=== PATIENT | female | born 1980 ===

== ENCOUNTER 2017-06-17 15:12 | Inpatient (IN) | payer MEDICAID, OTHER ==
[2017-06-17 15:12] VITALS: BMI 24.5
[2017-06-17 17:01] LABS: BASO # 0.1 K/uL (0.0-0.2); BASO % 1.5 % (0.0-2.0); EOS # 0.1 K/uL (0.0-0.7); EOS % 1.6 % (0.0-4.0); HEMATOCRIT 26.5 % (34.0-47.0); LYMPH # 1.9 K/uL (1.0-4.3); LYMPH % 29.2 % (20.0-40.0); MEAN CELL VOLUME 60.8 fL (81.0-99.0); MEAN CORPUSCULAR HEMOGLOBIN 17.6 pg (27.0-31.0); MEAN PLATELET VOLUME 8.9 fL (7.2-11.7); MONO # 0.5 K/uL (0.0-0.8); MONO % 6.9 % (0.0-10.0); RED CELL DISTRIBUTION WIDTH 18.7 % (11.5-14.5); WHITE BLOOD COUNT 6.5 K/uL (4.8-10.8)
[2017-06-17 17:06] LABS: CHLORIDE 106 mmol/L (98-107); POTASSIUM 4.2 mmol/L (3.6-5.2); SODIUM 141 mmol/L (132-148)
[2017-06-17 17:09] LABS: ALKALINE PHOSPHATASE 99 U/L (38-126); ALT/SGPT 25 U/L (9-52); AST/SGOT 19 U/L (14-36); BILIRUBIN,TOTAL 0.5 mg/dL (0.2-1.3); BLOOD UREA NITROGEN 10 mg/dL (7-17); CALCIUM 8.6 mg/dl (8.6-10.4); CARBON DIOXIDE 22 mmol/L (22-30); GFR AFRICAN-AMERICAN > 60; GLUCOSE,RANDOM 83 mg/dL (65-105); TOTAL PROTEIN 8.1 g/dL (6.3-8.3)
[2017-06-17 17:10] LABS: ALCOHOL SERUM < 10 mg/dl (0-10)
--- NOTE | 2017-06-17 17:12 | C.PDOC ---
History Of Present Illness 06/17/2017 37 y/o female presents to the ED for ETOH and heroin detoxification. Patient reports last use was at 09:00 am today. She notes feeling anxious and shaky. No other complaints were made. Time Seen by Provider: 06/17/17 15:50 Chief Complaint (Nursing): Substance Abuse History Per: Patient History/Exam Limitations: no limitations Onset/Duration Of Symptoms: Worse Since (prior to arrival) Current Symptoms Are (Timing): Still Present Modifying Factor(s): Alcohol, Narcotics Associated Symptoms: Anxiety Recent travel outside of the [place]: No Past Medical History Reviewed: Historical Data, Nursing Documentation, Vital Signs Vital Signs: Last Vital Signs Temp 98.1 F 06/17/17 15:26 Pulse 85 06/17/17 15:26 Resp 18 06/17/17 15:26 BP 120/71 06/17/17 15:26 Pulse Ox 98 06/17/17 18:13 - Medical History PMH: Denies: Diabetes, Hepatitis, HIV, HTN, Seizures, Sexually Transmitted Disease - [facility] Procedures COMBINED ALCOHOL AND DRUG DETOXIFICATION (04/22/15) Family History: States: Unknown Family Hx - Social History Hx Tobacco Use: Yes Hx Alcohol Use: Yes Hx Substance Use: Yes (heroin) - Immunization History Hx Tetanus Toxoid Vaccination: Yes Hx Influenza Vaccination: No Hx Pneumococcal Vaccination: No Review Of Systems Constitutional: Negative for: Fever Cardiovascular: Negative for: Chest Pain Respiratory: Negative for: Shortness of Breath Gastrointestinal: Negative for: Vomiting Psych: Positive for: Anxiety, Withdrawal (ETOH and heroin detoxification ) Physical Exam - Physical Exam Appears: Non-toxic, No Acute Distress, Other (cachectic) Skin: Normal Color, Warm, Dry Head: Atraumatic, Normacephalic Eye(s): bilateral: Normal Inspection, PERRL, EOMI Cardiovascular: Rhythm Regular, No Murmur Respiratory: Normal Breath Sounds, No Rales, No Rhonchi, No Wheezing Gastrointestinal/Abdominal: Soft, No Tenderness Extremity: Normal ROM, No Pedal Edema Neurological/Psych: Oriented x3, Normal Speech, Normal Cognition, Normal Motor, Normal Sensation ED Course And Treatment - Laboratory Results Result Diagrams: 06/17/17 16:54 06/17/17 16:54 O2 Sat by Pulse Oximetry: 98 (room air) Pulse Ox Interpretation: Normal Medical Decision Making Medical Decision Makin06/17/2017 Impression: 37 y/o with detoxification for ETOH and heroin Plan: -- Urinalysis -- Labs -- Reassess and disposition 608 pm pt with no prior hx of anemia; has not had blood drawn in several years. reports poor nutrition and heavy menstruation. pt denies any cp, sob, excessive fatigue. or palpitations. recommend that pt get an inpatient medical consult, reocmmmend starting patient on colace 100 mg po bid and ferrous sulfate 325 mg po bid. pt is medically cleared to be admitted for detoxication. s Disposition Discussed With Dr.: Jeffry Hancock Doctor Will See Patient In The: Hospital - Disposition Disposition: HOSPITALIZED Disposition Time: 18:12 Condition: STABLE Forms: Proxible (Mauritanian) - Clinical Impression Clinical Impression: Opioid use disorder, severe, dependence - Scribe Statement The provider has reviewed the documentation as recorded by the Scribe 06/17/2017 Scribe Attestation: Aspen Harding MD Scribe Attestation: All medical record entries made by the Scribe were at my direction and personally dictated by me. I have reviewed the chart and agree that the record accurately reflects my personal performance of the history, physical exam, medical decision making, and the department course for this patient. I have also personally directed, reviewed, and agree with the discharge instructions and disposition. Decision To Admit - Pt Status Changed To: Hospital Disposition Of: Inpatient - Admit Certification Admit to Inpatient:: After my assessment, the patient will require hospitalization for at least two midnights. This is because of the severity of symptoms shown, intensity of services needed, and/or the medical risk in this patient being treated as an outpatient. - InPatient: Physician Admission Certification: I certify that this patient requires 2 or more midnights of care for the following reason:: for detox - . Bed Request Type: Detox Patient Diagnosis: Opioid use disorder, severe, dependence
[2017-06-17 17:26] LABS: RBC URINE 1 /hpf (0-3); URINE BACTERIA RARE (<OCC); URINE BILIRUBIN NEGATIVE (NEGATIVE); URINE BLOOD NEGATIVE (NEGATIVE); URINE COLOR Yellow (YELLOW); URINE GLUCOSE (UA) NORMAL (Normal); URINE KETONE NEGATIVE (NEGATIVE); URINE PROTEIN NEGATIVE (NEGATIVE); URINE UROBILINOGEN NORMAL mg/dL (0.2-1.0); WBC URINE 10 /hpf (0-5)
[2017-06-17 17:30] LABS: URINE LEUKOCYTE ESTERASE 1+ Leu/uL (Negative)
--- NOTE | 2017-06-17 18:29 | PCM.BM ---
<CarmencitaMarybel - Last Filed: 06/17/17 18:28> Treatment Plan Problems - Problems identified on initial assessmt Potential for alcohol withdrawal Date Initiated: 06/17/17 Time Initiated: 18:29 Assessment reference: NA Status: Active Priority: 1 Potential for opiate withdrawal Date Initiated: 06/17/17 Time Initiated: 18:29 Assessment reference: NA Status: Active Priority: 2 Treatment assets and liabiliti Patient Assests: ADL independent, negotiates basic needs, cognitively intact Patient Liabilities: substance abuse - Milieu Protocol Maintain good personal hygiene: daily Encourage regular showers, daily Remind patient to perform daily oral care, daily Assist patient to perform ADL's Conduct patient checks and document Observation sheet: Q15 minutes Maintain personal safety: every shift Educate patient to report safety concerns to staff, every shift Monitor environment for contraband/sharps Medication safety: Monitor for expected outcome, potential side effects: every shift, Assess barriers to learning: every shift, Assess readiness for medication education: every shift <Jeffry Hancock - Last Filed: 06/18/17 18:25> - Diagnosis (1) Opioid use disorder, severe, dependence Status: Acute Interventions: 06/18/17 18:25 * Assess 7x/week regarding severity of withdrawal * Educate regarding risks, benefits, side effects and alternatives of medications * Use Motivational Interviewing for abstinence * Use CBT for relapse prevention * Medication management for withdrawal symptoms * Encourage medication assisted treatment * (2) Alcohol dependence Status: Acute Interventions: 06/18/17 18:26 * Assess 7x/week regarding severity of withdrawal * Educate regarding risks, benefits, side effects and alternatives of medications * Use Motivational Interviewing for abstinence * Use CBT for relapse prevention * Medication management for withdrawal symptoms * Encourage medication assisted treatment * <Leigh Ann Ortez - Last Filed: 06/19/17 14:15> Family Contact Family involvement: Famliy/SO not involved Family contact: Patient declines to allow family contact at present - Goals for Treatment Patient goals for treatment: Complete detox and transition to a short-term rehab program. Discharge/Continuing Care - Education Needs Education Needs: Patient Medication, Patient Diagnosis/Disease Process, Patient Coping Skills, Patient Anger Management skills, Patient Placement options, Patient Community resources - Discharge Discharge Criteria: Free of agitation, No longer exhibiting s/s of withdrawal, Reduction of target symptoms Discharge to:: Substance Abuse Rehab - Treatment Team Participation Patient/Family/SO Statement: 06/19/17 14:14 "I wanna go to [facility] but my ID is . I hope they still take me". 06/19/17 14:15 Discussed with Family/SO: No Was Patient/Family/SO present at Treatment Team Meeting: Yes
[2017-06-17] MEDS ORDERED: Aluminum Hydroxide/Magnesium Hydroxide Susp (30 mL) PO PRN (19:02)
[2017-06-18] MEDS: Multiple Vitamins Tab PO SCH (10:14)
[2017-06-18 13:47] VITALS: RESP 18
--- NOTE | 2017-06-18 14:51 | PCM.PSYCH ---
Initial Psychiatric Evaluation - Initial Psychiatric Evaluation Type of Admission: Voluntary Legal Status: Capacity Chief Complaint (in patient's own words): "I want to get clean" History of Present Illness and Precipitating Events: Patient is a 37 year old female, single, with 3 children (19 year old in group home, 15 year old lives with her, 10 year old lives with one of her sisters in [place]) , who lives with her sister and her sister's 7 year old son, who is currently unemployed and supported financially by her sister. Patient admits to using 10-15 bags of heroin IV per day, for the last 5 years. First time use was at age 30. She was admitted for detox at this hospital in April 2015 and was clean for 2 weeks following that admission. Patient also reports drinking 1 pint of vodka per day for the past year. She states that when she initially started drinking, it was only socially. She was on a methadone program at [facility] in November 2016 (80mg dose) but stopped because "it wasn't working" and she was still using heroin and alcohol. She also reports IV cocaine use for one year. Her first use was one year ago when she started. Reports smoking 8-10 cigarettes per day. She has a history of taking painkillers and BZDs but denies recent use. Denies use of marijuana, PCP , ecstasy or other substances. Psychiatric history: denies ETOH use: noted above Tobacco: 8-10 cigarettes/day Medical history: denies Family history: Father: heroin, cocaine use Grandmother: cocaine use Uncles: cocaine use No known psychiatric illnesses Social history: Unemployed, financial support by sister Lives with sister, her sister's 7 year old son, her own 15 year old daughter Single, 3 children (noted above) Not on probation or parole Current Medications: Active Medications Generic Name Dose Route Start Last Admin Trade Name Freq PRN Reason Stop Dose Admin Acetaminophen 650 mg 06/17/17 18:51 Tylenol 325mg Tab PO Q6 PRN Pain, moderate (4-7) Al Hydrox/Mg Hydrox/Simethicone 30 ml 06/17/17 19:02 Maalox 30 Ml PO TID PRN Indigestion / Heartburn Chlordiazepoxide 25 mg 06/17/17 19:09 06/17/17 19:32 Librium PO 25 mg Q4H PRN Administration Alcohol Withdrawal Chlordiazepoxide 25 mg 06/18/17 00:00 06/18/17 12:49 Librium PO 06/21/17 23:59 25 mg Q6H KC Administration Taper Clonidine HCl 0.1 mg 06/17/17 19:02 Catapres PO Q8 PRN COWS Score More or Equal to 5 Docusate Sodium 100 mg 06/17/17 19:00 06/18/17 10:14 Colace PO 100 mg BID CK Administration Ferrous Sulfate 325 mg 06/17/17 19:00 06/18/17 13:54 Feosol PO Not Given TID CK Folic Acid 1 mg 06/18/17 10:00 06/18/17 10:14 Folic Acid PO 1 mg DAILY CK Administration Gabapentin 300 mg 06/18/17 10:00 06/18/17 10:14 Neurontin PO 300 mg BID CK Administration Hydroxyzine HCl 50 mg 06/17/17 18:51 06/17/17 19:32 Atarax PO 50 mg Q6H PRN Administration Anxiety Loperamide HCl 2 mg 06/17/17 19:02 Imodium PO Q8 PRN Diarrhea Multivitamins 1 tab 06/18/17 10:00 06/18/17 10:14 Hexavitamin PO 1 tab DAILY CK Administration Nicotine 1 patch 06/17/17 19:35 06/18/17 10:15 Nicoderm Cq TD 1 patch DAILY CK Administration Ondansetron HCl 4 mg 06/17/17 19:02 Zofran Tab PO Q8 PRN Nausea/Vomiting Thiamine HCl 100 mg 06/18/17 10:00 06/18/17 10:14 Vitamin B1 Tab PO 100 mg DAILY CK Administration Trazodone HCl 50 mg 06/17/17 18:57 Desyrel PO HS PRN Insomnia Past Psychiatric History - Past Psychiatric History Previous Treatment History: None Pertinent Medical Hx (Current Medical&Sleep Prob, Allergies): Allergies Allergy/AdvReac Type Severity Reaction Status Date / Time No Known Allergies Allergy Verified 07/31/16 16:31 No Known Home Med 06/17/17 Review of Systems - Neurological Neurological: UNREMARKABLE - Psychiatric Psychiatric: As Per HPI, Abnormal Sleep Pattern, Anxiety. absent: Hallucinations, Homicidal Ideation, Paranoia, Suicidal Ideation Mental Status Examination - Personal Presentation Personal Presentation: Looks stated age - Affect Affect: Constricted - Motor Activity Motor Activity: Calm - Reliability in Providing Information Reliability in Providing Information: Good - Speech Speech: Organized - Mood Mood: Neutral - Formal Thought Process Formal Thought Process: No Impairment - Obsessions/Compulsions Obsessions: No Compulsions: No - Cognitive Functions Orientation: Person, Place, Situation, Time Sensorium: Alert Attention/Concentration: Attentive Estimate of Intelligence: Average Judgement: Intact, as evidence by: Insight regarding need for hospitalization Memory: Recent intact, as evidence by: Ability to recall events of the day, Remote intact, as evidenced by: Abilit to recall sig. life events - Risk Risk: Withdrawal, Diminished functioning - Strength & Assets Inventory Strength & Assets Inventory: Family support, Cooperative - Limitations Limitations: Other DSM 5 DX - DSM 5 DSM 5 Diagnosis: Opioid use disorder, severe Opioid withdrawal Alcohol use disorder Alcohol withdrawal Cocaine use disorder, severe Tobacco use disorder - Recommended/Plan of Treatment Treatment Recommendations and Plan of Treatment: Opioid use disorder, severe: CBT and [place] psychoeducation supportive therapy, individual therapy Opioid withdrawal: Monitor vital signs and withdrawal symptoms Neurontin 30mg PO BID Start detox Alcohol use disorder CBT psychoeducation supportive therapy, individual therapy Alcohol withdrawal Librium 25mg PO Q4H PRN Librium taper started Gabapentin Cocaine use disorder, severe CBT psychoeducation supportive therapy, individual therapy use LA for abstinence Gabapentin Tobacco use disorder Nicoderm 1 patch TD daily 33 min Projected ELOS: 5 days Prognosis: good w treatment Discharge Plan and Discharge Criteria: no wdw sxs refer to MAT or rehab - Smoking Cessation Smoking Cessation Initiated: Yes
[2017-06-18] MEDS ORDERED: Buprenorphine Hydrochloride 2 mg SL ONE ×2 (15:48→17:00)
[2017-06-19] MEDS: Multiple Vitamins Tab PO SCH (09:51)
[2017-06-19] MEDS: Buprenorphine Hydrochloride 2 mg SL SCH (09:52)
--- NOTE | 2017-06-19 13:42 | PCM.PYCHPN ---
Psychiatric Progress Note - Psychiatric Progress Note Patient seen today, length of contact: 15 minutes Patient Chief Complaint: "I'm feeling comfortable" Problems Identified/Issues Discussed: The patient was seen, chart reviewed, case discussed with staff. The patient is compliant with medications and reports no side effects. The patient states she is feeling comfortable and is doing okay. She was able to sleep last night. She reports some anxiety and feels a little shaky, but otherwise denies withdrawal symptoms including nausea, vomiting, diarrhea, skin itching, auditory /visual hallucinations, headache, heart racing, muscle pain, runny nose and eye tearing. Symptoms are improving, but patient needs more time to stabilize. After care discussed, support and psychoeducation given. hep C came positive and it is discussed CXR ordered for rehab clearance Medication Change: No Medical Record Reviewed: Yes Mental Status Examination - Cognitive Function Orientation: Person, Place, Situation, Time - Mood Mood: Neutral - Affect Affect: Constricted - Formal Thought Process Formal Thought Process: No Impairment - Homicidal Ideation Homicidal Ideation: No Goal/Treatment Plan - Goal/Treatment Plan Need for Continued Stay: Discharge may exacerbated symptoms Progress Toward Problem(s) and Goals/Treatment Plan: Opioid use disorder, severe: CBT and [place] psychoeducation supportive therapy, individual therapy Opioid withdrawal: Monitor vital signs and withdrawal symptoms Neurontin 30mg PO BID Continue detox Alcohol use disorder CBT psychoeducation supportive therapy, individual therapy Alcohol withdrawal Librium 25mg PO Q4H PRN Librium taper started Gabapentin Cocaine use disorder, severe CBT psychoeducation supportive therapy, individual therapy use NM for abstinence Gabapentin Tobacco use disorder Nicoderm 1 patch TD daily - Smoking Cessation Smoking Cessation Initiated: Yes
--- NOTE | 2017-06-19 16:59 | RAD ---
HISTORY: rehab clearance COMPARISON: No prior. TECHNIQUE: Chest PA and lateral FINDINGS: LUNGS: No active pulmonary disease. PLEURA: No significant pleural effusion identified. No pneumothorax apparent. CARDIOVASCULAR: Normal. OSSEOUS STRUCTURES: No significant abnormalities. VISUALIZED UPPER ABDOMEN: Large amount of gas is seen in the stomach and under and splenic flexure. Correlate clinically OTHER FINDINGS: None. IMPRESSION: No active cardiopulmonary disease. Prominent gastric gas and superimposed prominent gas and splenic flexures the actual splenic flexure diameters appear borderline prominent. Clinical correlation is essential the bowel gas pattern is nonspecific-in portions visualized
[2017-06-20] MEDS: Multiple Vitamins Tab PO SCH (09:31)
[2017-06-20] MEDS: Buprenorphine Hydrochloride 2 mg SL SCH (09:31)
--- NOTE | 2017-06-20 15:00 | PCM.PYCHPN ---
Psychiatric Progress Note - Psychiatric Progress Note Patient seen today, length of contact: 15 minutes Patient Chief Complaint: "I'm still very comfortable" Problems Identified/Issues Discussed: The patient was seen, chart reviewed, and case discussed with staff. Patient is compliant with medications and reports no side effects. Patient states, "I'm doing good, I'm very comfortable here." She expresses concern about needing to borrow money from her family in order to get a valid government ID, which she needs in order to be accepted to a program when she leaves here. Discussed positive Hepatitis C result with patient; she was instructed for follow-up every 6 months to have her liver checked. Patient also complains of vaginal discomfort. Discussed that patient can follow- up outpatient at the clinic here. Symptoms are improving but patient needs more time to stabilize. After care discussed--patient encouraged to speak to her father or reach out to other family members if he is unable to give her money to get her ID. Support and psychoeducation given. Medication Change: Yes (Detox changes daily ) Medical Record Reviewed: Yes Mental Status Examination - Cognitive Function Orientation: Person, Place, Situation, Time Memory: Intact Attention: WNL Concentration: WNL Association: WNL Fund of Knowledge: WNL - Mood Mood: Neutral - Affect Affect: Constricted - Speech Speech: Appropriate - Formal Thought Process Formal Thought Process: No Impairment - Suicidal Ideation Suicidal Ideation: No - Homicidal Ideation Homicidal Ideation: No Goal/Treatment Plan - Goal/Treatment Plan Need for Continued Stay: Discharge may exacerbated symptoms Progress Toward Problem(s) and Goals/Treatment Plan: Opioid use disorder, severe: CBT and [place] psychoeducation supportive therapy, individual therapy Opioid withdrawal: Monitor vital signs and withdrawal symptoms Neurontin 30mg PO BID Continue detox Alcohol use disorder: CBT psychoeducation supportive therapy, individual therapy Alcohol withdrawal: Librium 25mg PO Q4H PRN Librium taper started Gabapentin Cocaine use disorder, severe: CBT psychoeducation supportive therapy, individual therapy use GA for abstinence Gabapentin Tobacco use disorder: Nicoderm 1 patch TD daily - Smoking Cessation Smoking Cessation Initiated: Yes
[2017-06-21 06:13] VITALS: O2SAT 99
[2017-06-21] MEDS: Multiple Vitamins Tab PO SCH (09:20)
[2017-06-21] MEDS: Buprenorphine Hydrochloride 2 mg SL SCH (09:23)
[2017-06-21 09:45] VITALS: BP 101/67; PULSE 98; TEMP 97.8
--- NOTE | 2017-06-21 09:49 | PCM.PYCHDC ---
Mental Status Examination - Mental Status Examination Orientation: Person, Place, Situation, Time Memory: Intact Mood: Anxious Affect: Constricted Speech: Appropriate Attention: WNL Concentration: WNL Association: WNL Fund of Knowledge: WNL Formal Thought Process: No Impairment Suicidal Ideation: No Current Homicidal Ideation?: No Discharge Summary - Discharge Note Reason for Hospitalization: Detox Laboratory Data: Abnormal Lab Results 06/19/17 13:07 C.trachomatis RNA (TMA) Not detected N.gonorrhoeae RNA (TMA) Not detected Consultations:: List each consultation separately and include: 1. Reason for request. 2. Findings. 3. Follow-up Summary of Hospital Course include:: 1. Description of specific treatment plan utilized for patients during their course of treatmen. 2. Summarize the time- course for resolution of acute symptoms and/or regressed behaviors. 3. Describe issues identified and worked on during hospitalization. 4. Describe medication utilized. 5. Describe medical problems identified and treated. 6. Reassessment of suicide risk Summary of Hospital Course: The patient was admitted and started on treatment with psychotherapy, support, psychoeducation and medications. NV and CBT used. The patient attended groups and activities, as well as milieu therapy. All the risks and benefits of medications are discussed, and the patient understood and agreed. The patient improved with the treatments provided. She states "I feel good" and "you guys made me very comfortable." After care discussed with the patient. She states that her primary concern is getting money so that she can go to the [employer] and get a valid ID. She states she wasn't able to get in touch with her father yesterday. She says that her priority is to get her ID and go to a program as fast as possible so she can stay clean. - Diagnosis (1) Opioid use disorder, severe, dependence Status: Acute (2) Alcohol dependence Status: Acute - Final Diagnosis (DSM 5) Condition upon Discharge: STABLE DSM 5: Opioid use disorder, severe Opioid withdrawal Alcohol use disorder Alcohol withdrawal Cocaine use disorder, severe Tobacco use disorder Disposition: HOME/ ROUTINE Follow-up Treatment Plan: Continue below medications after discharge. Follow after care plan as discussed. Use relapse prevention skills. Return to ED or call 911 if suicidal, homicidal or symptoms relapse. Stay away from stress, alcohol and drugs. See primary doctor once a year. Prescriptions/Medication Reconciliation: Docusate [Colace] 100 mg PO BID #60 cap Ferrous Sulfate [Feosol] 325 mg PO BID #60 tab Gabapentin [Neurontin] 300 mg PO BID #60 cap traZODone [Desyrel] 50 mg PO HS PRN #30 tab PRN Reason: Insomnia - Smoking Cessation Smoking Cessation Medication prescribed: No - Antipsychotic Medications Pt discharged on 2 or more routine antipsychotic medications: No
== END 2017-06-21 12:00 | disposition home or self-care (01) | DRG 744 ==
LOC: C.ER 15:12 → OBSVTOIN 18:13 → C.7D 18:13
PROVIDERS: ADMIT Psychiatry & Neurology Psychiatry; ATTEND Psychiatry & Neurology Psychiatry
PROC: HZ2ZZZZ Detoxification Services for Substance Abuse Treatment (ICD-10-PCS; principal; 2017-06-17)
PROC: HZ52ZZZ Individual Psychotherapy for Substance Abuse Treatment, Cognitive-Behavioral (ICD-10-PCS; 2017-06-17)
PROC: HZ42ZZZ Group Counseling for Substance Abuse Treatment, Cognitive-Behavioral (ICD-10-PCS; 2017-06-17)
PROC: HZ59ZZZ Individual Psychotherapy for Substance Abuse Treatment, Supportive (ICD-10-PCS; 2017-06-17)
PROC: HZ56ZZZ Individual Psychotherapy for Substance Abuse Treatment, Psychoeducation (ICD-10-PCS; 2017-06-17)
PROC: HZ46ZZZ Group Counseling for Substance Abuse Treatment, Psychoeducation (ICD-10-PCS; 2017-06-17)
DX: F11.23 Opioid dependence with withdrawal (principal); B19.20 Unspecified viral hepatitis C without hepatic coma; F10.230 Alcohol dependence with withdrawal, uncomplicated; Y90.0 Blood alcohol level of less than 20 mg/100 ml; F17.210 Nicotine dependence, cigarettes, uncomplicated; F14.10 Cocaine abuse, uncomplicated